=== PATIENT | female | born 1965 | race Caucasian/White ===

== ENCOUNTER 2023-10-08 08:39 | Day surgery (SDC) | payer OTHER ==
[~2023-10-08] VITALS: Ht 167.6 cm; Wt 65.8 kg
[2023-10-08] MEDS ORDERED: NS IRRIG SOLN 1000 ML IR ONE (11:06)
[2023-10-08] MEDS ORDERED: OXYMETAZOLINE HCL 0.05% NASAL SPRAY NS ONE (11:06)
[2023-10-08] MEDS ORDERED: MIDAZOLAM HCL 2 MG/2 ML VIAL (VERSED) ONE (11:06)
[2023-10-08] MEDS ORDERED: LR 1,000 ML IV.SOLN IV ONE (11:06)
[2023-10-08] MEDS ORDERED: PROPOFOL 200MG/ 20ML VIAL (DIPRIVAN) IV ONE (11:06)
[2023-10-08] MEDS ORDERED: LIDOCAINE 2%, 20 ML MDV ONE (11:06)
[2023-10-08] MEDS ORDERED: WATER FOR IRRIGATION,STERILE 1,000 ML IRRIG.SOLN IR ONE (11:06)
[2023-10-08] MEDS ORDERED: LIDOCAINE/EPI 1% 1:100000 20 ML VIAL ONE (11:06)
[2023-10-08] MEDS ORDERED: ONDANSETRON HCL 4 MG/2 ML VIAL ONE (11:06)
[2023-10-08] MEDS ORDERED: DEXAMETHASONE SOD PHOSPHATE 4 MG/ML VIAL ONE (11:06)
[2023-10-08] MEDS ORDERED: fentaNYL CITRATE/PF 100 MCG/2 ML AMP ONE (11:06)
[2023-10-08] MEDS ORDERED: SUGAMMADEX SODIUM 200 MG/2 ML VIAL IV ONE (11:06)
[2023-10-08] MEDS ORDERED: DESFLURANE 15 MIN GAS INH ONE (11:06)
[2023-10-08] MEDS ORDERED: ROCURONIUM BROMIDE 10 MG/ML (ZEMURON) ONE (11:06)
[2023-10-08] MEDS ORDERED: hydrALAZINE HCL 20 MG/ML VIAL IVP PRN (11:45)
[2023-10-08] MEDS ORDERED: METOCLOPRAMIDE HCL 10 MG/2 ML VIAL IVP PRN (11:45)
[2023-10-08] MEDS ORDERED: LABETALOL 100 MG/ 20ML VIAL IVP PRN (11:45)
[2023-10-08] MEDS ORDERED: MIDAZOLAM HCL 2 MG/2 ML VIAL (VERSED) IVP PRN (11:45)
[2023-10-08] MEDS ORDERED: HYDROmorphone 1 MG/ML INJ. CARTRIDGE IVP PRN ×2 (11:45)
[2023-10-08] MEDS ORDERED: LR 1,000 ML IV SCH (11:45)
[2023-10-08] MEDS ORDERED: ACETAMINOPHEN I.V. 1000 MG 100 ML IV ONE (11:58)
[2023-10-08 12:44] VITALS: O2SAT 99
[2023-10-08] MEDS: MEPERIDINE HCL/PF 25 MG/ML DISP.SYRIN IVP PRN ×2 (13:10→13:35)
[2023-10-08] MEDS ORDERED: METOCLOPRAMIDE HCL 10 MG/2 ML VIAL ONE (13:16)
[2023-10-08] MEDS ORDERED: MEPERIDINE HCL/PF 25 MG/ML DISP.SYRIN ONE ×2 (13:16)
[2023-10-08 16:28] VITALS: BP_SYST 118; PULSE 65; RESP 20
== END 2023-10-08 15:40 | disposition home or self-care (01) ==
LOC: SDS 08:39 → SMU 08:41 → SDS 15:40
PROVIDERS: ATTEND Otolaryngology
DX: D38.5 Neoplasm of uncertain behavior of other respiratory organs (principal); J34.89 Other specified disorders of nose and nasal sinuses; J30.1 Allergic rhinitis due to pollen; J34.2 Deviated nasal septum; E78.5 Hyperlipidemia, unspecified; J21.9 Acute bronchiolitis, unspecified; K21.9 Gastro-esophageal reflux disease without esophagitis; Z79.899 Other long term (current) drug therapy
CPT/HCPCS: 30520; 88304; 88311; 30140; 31240; J3490; J1100; J2001; J2765; J3465; J2405; J2704; J3010; J2175; J7120; J0131